=== PATIENT | male | born 2000 | race Caucasian/White ===

== ENCOUNTER 2024-02-20 19:51 | Emergency (ER) | payer MEDICAID ==
[~2024-02-20] VITALS: Ht 175.3 cm; Wt 143.6 kg
[~2024-02-20 19:51] MED LIST: DIVA-81 PO; LORA10TA7 PO; QUET100T34 PO; SERT-153 PO
[2024-02-20 19:55] VITALS: BP 145/79; PULSE 88; RESP 15; TEMP 98.2; O2SAT 99
== END 2024-02-21 | disposition left against medical advice (07) ==
LOC: ER 19:52
DX: N48.89 Other specified disorders of penis (principal); Z53.21 Procedure and treatment not carried out due to patient leaving prior to being seen by health care provider
CPT/HCPCS: 99281

== ENCOUNTER 2024-03-19 13:26 | Outpatient (CLI) | payer MEDICAID ==
[~2024-03-19] VITALS: Ht 175.3 cm; Wt 144.2 kg
[2024-03-19 13:53] VITALS: PULSE 77; RESP 15; O2SAT 98
[2024-03-19] MEDS: albuterol 2.5 MG/3 ML nebule NEB ONE (13:56)
== END 2024-03-19 23:59 | disposition home or self-care (01) ==
LOC: RT 13:26
PROVIDERS: ATTEND Nurse Practitioner Family
DX: J45.998 Other asthma (principal)
CPT/HCPCS: 94060; 94760